=== PATIENT | male | born 1950 | race Caucasian/White ===

== ENCOUNTER 2019-02-04 12:09 | Emergency (ER) | payer OTHER | END 2019-02-04 13:10 | disposition home or self-care (01) | LOC: JER 12:09 → JERFT 13:10 ==

== ENCOUNTER 2019-02-13 19:33 | Emergency (ER) | payer OTHER, MEDICARE ==
--- NOTE | 2019-02-13 19:36 | PDOC ---
Rapid Medical Evaluation Medical Evaluation: Allergies Allergy/AdvReac Type Severity Reaction Status Date / Time No Known Allergies Allergy Verified 02/04/19 12:16 I have performed a brief in-person evaluation of this patient. The patient presents with a chief complaint of: suture removal from R 4th finger lac repair done 9 days ago Pertinent physical exam findings: minimal swelling around sutures, no redness, no discharge I have ordered the following: nothing The patient will proceed to the ED for further evaluation. 02/13/19 19:35
[2019-02-13 19:37] VITALS: BP 138/78; PULSE 75; TEMP 98.2; BMI 28.1
--- NOTE | 2019-02-13 20:08 | PDOC ---
Suture Removal/Wound Check HPI - History of Present Illness Chief Complaint: Suture/Staple Removal(Here) Stated Complaint: TO BE SEEN Time Seen by Provider: 02/13/19 19:34 History Source: Yes: Patient, Old Records Exam Limitations: Yes: No Limitations Treated at: [facility] ED Date of Last ED visit: 02/04/19 - Previous ED Treatment Type of procedure performed on last visit: Yes: Laceration Repair Tetanus Immunization: Yes: Given at last ED visit - Onset of Previous Treatment Date of Occurence: 02/04/19 Comment:: 02/13/19 20:07 4 suture removed without complication. Patient tolerated well. Past History - Past Medical History Allergies/Adverse Reactions: Allergies Allergy/AdvReac Type Severity Reaction Status Date / Time No Known Allergies Allergy Verified 02/13/19 19:37 Home Medications: Ambulatory Orders Aspirin 81 mg PO DAILY 03/30/14 Metoprolol Succinate 25 mg PO BID 03/30/14 Cephalexin Monohydrate [Keflex -] 500 mg PO BID 7 Days #14 capsule 02/04/19 Ibuprofen [Motrin -] 600 mg PO Q8H PRN #20 tablet 02/04/19 Rosuvastatin [Crestor -] 20 mg PO HS 02/04/19 Valsartan [Diovan] 160 mg PO DAILY 02/04/19 Cardiac Disorders: Yes ([place] 2013, stents x2) COPD: No HTN: Yes Hypercholesterolemia: Yes - Family Disease History Family Disease History: Heart Disease: Brother (3 brothers passed at ages 44-50 from [place]) - Immunization History Immunization Up to Date: Yes (02/04/19) - Suicide/Smoking/Psychosocial Hx Smoking History: Never smoked Have you smoked in the past 12 months: No If you are a former smoker, when did you quit?: 07/10/87 Hx Alcohol Use: No Drug/Substance Use Hx: No Substance Use Type: None Hx Substance Use Treatment: No *Physical Exam - Vital Signs Last Vital Signs Temp Pulse Resp BP Pulse Ox 98.2 F 75 18 138/78 99 02/13/19 19:35 02/13/19 19:35 02/13/19 19:35 02/13/19 19:35 02/13/19 19:35 *DC/Admit/Observation/Transfer Diagnosis at time of Disposition: Visit for suture removal - Discharge Dispostion Disposition: HOME Condition at time of disposition: Stable Decision to Admit order: No - Referrals - Patient Instructions Printed Discharge Instructions: DI for Suture Removal - Post Discharge Activity
== END 2019-02-13 20:10 | disposition home or self-care (01) ==
LOC: JERFT 19:33
DX: Z48.817 Encounter for surgical aftercare following surgery on the skin and subcutaneous tissue (principal); Z48.02 Encounter for removal of sutures; I25.10 Atherosclerotic heart disease of native coronary artery without angina pectoris; I10 Essential (primary) hypertension; Z95.5 Presence of coronary angioplasty implant and graft; E78.00 Pure hypercholesterolemia, unspecified
CPT/HCPCS: 99281-25